=== PATIENT | male | born 1945 | race Caucasian/White ===

== ENCOUNTER 2017-09-18 05:30 | Day surgery (SDC) | payer MEDICARE, BC ==
[2017-09-17 16:04] LABS: BASOPHILS 0.5 % (0-2); EOSINOPHILS 5.6 % (0-7); HEMATOCRIT 36.9 % (42.0-54.0); HEMOGLOBIN 12.7 g/dL (13.5-17.5); IMMATURE GRANULOCYTES 0.5 % (0-5); LYMPHOCYTES 31.2 % (15-50); MCH 35.6 pg (26.0-34.0); MCHC 34.4 g/dL (31.0-37.0); MCV 103.4 fL (80.0-100.0); MEAN PLATELET VOLUME 9.6 fL (7.4-10.4); MONOCYTES 8.7 % (2-11); NEUTROPHILS 53.5 % (40-80); PLATELET COUNT 212 10x3/uL (130-400); RBC 3.57 10x6/uL (4.20-6.10); RDW 14.7 % (11.5-14.5); WBC 7.4 10x3/uL (4.8-10.8)
[2017-09-17 16:11] LABS: APTT 28.5 SECONDS (22.8-39.4); INR 1.1 (0.85-1.17); PROTIME 13.8 SECONDS (11.6-15.0)
[2017-09-17 16:14] LABS: ANION GAP 16.6 mmol/L (8-16); CALCIUM 9.2 mg/dL (8.5-10.1); CARBON DIOXIDE 24.6 mmol/L (21.0-32.0); CREATININE - SERUM 3.5 mg/dL (0.6-1.3); POTASSIUM - SERUM 4.2 mmol/L (3.5-5.1)
[~2017-09-18] VITALS: Ht 195.6 cm; Wt 93.0 kg
--- NOTE | ~2017-09-18 | OP ---
PATIENT NAME: DICK JARRETT MEDICAL RECORD: [id number] :46 [facility]ATION:[facility] ADMISSION DATE: SURGEON: YEMI MOLINA MD DATE OF OPERATION: 09/18/2017 REFERRED BY: Devi Camara MD PREOPERATIVE DIAGNOSES: Chronic kidney disease stage V and also chronically incarcerated symptomatic umbilical hernia without obstruction or gangrene. POSTOPERATIVE DIAGNOSES: Chronic kidney disease stage V and also chronically incarcerated symptomatic umbilical hernia without obstruction or gangrene. SURGEON: Yemi Molina MD. OPERATION PERFORMED: 1. Creation of a right proximal radial artery to cephalic vein unidirectional AV fistula. 2. Repair of umbilical hernia with mesh. PREOPERATIVE NOTE: Mr. Jarrett is a 71-year-old white male patient with a symptomatic chronically incarcerated umbilical hernia with an incarcerated mass, the size of a golf ball, which I think is probably preperitoneal fat or omentum. He has no symptoms of obstruction or sepsis that has not ever been repaired before and has been incarcerated for a long time. This is to be repaired also. He is anticipated to require dialysis and will have today a right arm AV fistula created. DESCRIPTION OF PROCEDURE: Under a regional nerve block as well as general anesthesia with LMA per [employer], the patient prepped and draped in sterile manner. The fistula was performed first. I applied nitroglycerin topically to the arm and forearm and used a Sang drain as a proximal venous tourniquet. I examined it with ultrasound and found that the cephalic vein at the wrist was inadequate, but there was a good median antebrachial vein and excellent median cubital veins and basilic and cephalic veins with almost equal flow to both basilic and cephalic veins proximally. I elected to go ahead with a PRA to cephalic vein fistula. I made a longitudinal incision on the middle of the upper portion of the forearm and exposed the antebrachial vein and its branches of the median cubital veins to the cephalic and basilic and the deep perforating or communicating vein. I then exposed the proximal radial artery from its origin from the brachial artery for a distance of about an inch. The perforating vein was quite large and I thought this was very suitable situation for a PRA fistula. I thought that a cephalic vein fistula would be the best choice as it would not require a translocation procedure. The antebrachial vein was mostly hemoclipped and eventually divided as was the median cubital vein draining into the basilic vein. This was ligated also with Vicryl. The artery was exposed and controlled with vessel loops. It was opened for a distance of about 6 or 7 mm. It was flushed with heparinized saline. The perforating vein was transected and beveled and the vein was flushed with heparinized saline after which an end-to-side, end of vein to side of artery anastomosis was performed with running 7-0 Prolene. When completed, flow initially was very adequate though there was not much of a palpable thrill and I eventually removed the ligatures from the median cubital vein to the basilic vein and passed a new 3-English Zachery embolectomy catheter through the OPERATIVE REPORT [id number] LUIZA,DICK anastomosis and into the distal artery and when it was retrieved, I removed a small amount of clot and then had a much more robust arterial inflow and back bleeding. The vein was ligated again and Hemocliped, and I noted much improved palpable thrill and Doppler flow in the fistula and in the cephalic vein above the antecubital space. The wound was irrigated with Ancef/gentamicin solution and closed without the use of a drain, closing the subcutaneous tissues with interrupted inverted 3-0 Vicryl and skin was closed with running intracuticular 4-0 Monocryl and Dermabond glue. It was dressed with Maxorb Ag, Tegaderm, and Cavilon skin prep. The abdomen which had been prepped and draped, initially was then exposed, I made a curvilinear transversely oriented smiley face incision just beneath the umbilicus and carried the incision down to the fascia and then dissected the hernia from the overlying skin and defined the fascial margins with electrocautery dissection. I found the patient had a very tight hernia sac, which I removed and freed the omentum up from adhesions to the anterior abdominal wall. All of it was present within the hernia and there was no sign of any bowel or leakage or necrotic tissue or chronic infection. I reduced all of the omentum back into the abdomen and then inserted a Bard Ventralex 2.5 inch diameter circular polypropylene mesh with a separate technology or an adhesion barrier on the deep aspect. The hernia defect was then closed over the mesh transversely with a [id number] 0 Vicryl and having these sutures incorporating underlying mesh. The wound was then irrigated with Ancef/gentamicin solution and infiltrated with 0.25% Marcaine without epinephrine. The wound was closed with interrupted inverted 3-0 Vicryl with one stitch anchoring the umbilical skin to the base of the wound. The incision was closed with running intracuticular 4-0 Monocryl and Dermabond glue and it was dressed with Maxorb Ag, Tegaderm, and Cavilon skin prep. The umbilicus was then filled with moistened cotton balls over which further sterile dressing was applied. An ice pack was applied over that. The patient was awakened and taken to the recovery room in stable condition. Blood loss during the procedure, estimated at 25 cc and was unreplaced. All sponges, instruments and needles were accounted for. No drain was used and I did not submit any tissue for histopathology. PLAN: The patient will be discharged home today with a prescription for [place] 5/325, he can take 1 or 2 p.o. q.4 hours p.r.n. pain and he was cautioned that the medication may cause constipation and that he should take a stool softener daily and MiraLax if needed as a laxative. He is given my cell numbers, so that he can reach me over the weekend or after regular office hours should he need to and an appointment to be schedule for him to return to see me in my office next week. He is also given an abdominal binder and advised to wear this day and night as it will help relieve his pain and postop discomfort and facilitate his coughing and deep breathing. TRANSINT:[id number] Voice Confirmation ID: [id number] DOCUMENT ID: [id number] OPERATIVE REPORT [id number] DICK JARRETT JAMES MD at 1713 CC: DEVI CAMARA [id number] DICTATION DATE: 09/18/17 1140 STRATEGIES ANALYST: 09/18/17 1222 [facility] [address] [id number]
[~2017-09-18 05:30] MED LIST: BUSPAR10 MG PO; CARTIA XT240 MG PO; CYCLOBENZAPRINE10 MG PO; ELIQUIS2.5 MG PO; HYDRALAZINE HCL25 MG; METOPROLOL TART50 MG PO; MYSOLINE 50 MG50 MG PO; NEXIUM10 MG/PACK PO; ROCALTROL0.5 MCG PO; ZOCOR10 MG PO; ZYLOPRIM300 MG PO
[2017-09-18 05:52] VITALS: BP 173/83; Ht 195.6 cm; Wt 93.0 kg
[2017-09-18] MEDS ORDERED: HYDROCODON-ACE1 EAC7 PO (11:20)
== END 2017-09-18 17:55 | disposition home or self-care (01) ==
LOC: D.OPS 05:30 → D.PAN 08:00 → D.OPS 08:00
PROVIDERS: Surgery
DX: N18.5 Chronic kidney disease, stage 5 (principal); Z99.2 Dependence on renal dialysis; K42.0 Umbilical hernia with obstruction, without gangrene; Z01.812 Encounter for preprocedural laboratory examination